=== PATIENT | male | born 1985 | race Caucasian/White ===

== ENCOUNTER 2018-10-27 00:16 | Emergency (ER) | payer SELFPAY ==
[2018-10-27 01:18] LABS: Protime INR 1.06
[2018-10-27 01:21] LABS: Absolute Lymphocytes (CBC) 3.7 K/uL (0.7-4.9); Basophils % 0.4 % (0-1.3); Hematocrit 45.8 % (39.6-49.0); Lymphocytes % 44.2 % (15.3-44.8); MPV 9.8 fL (7.6-11.3); RBC Red Blood Cell Count 5.34 M/uL (4.33-5.43)
[2018-10-27 01:32] LABS: ALT/SGPT 35 U/L (12-78); AST/SGOT 19 U/L (15-37); Albumin 4.1 g/dL (3.4-5.0); Alkaline Phosphatase 89 U/L (45-117); BUN Blood Urea Nitrogen 14 mg/dL (7-18); Bicarbonate 26 mmol/L (21-32); Bilirubin Direct < 0.1 mg/dL (0-0.2); Bilirubin Total 0.2 mg/dL (0.2-1.0); Glucose Level 132 mg/dL (74-106); Magnesium 2.4 mg/dL (1.8-2.4); Potassium 3.8 mmol/L (3.5-5.1); Protein, Total 7.7 g/dL (6.4-8.2); Sodium Level 140 mmol/L (136-145); Troponin (Emerg Dept Use Only) < 0.02 ng/mL (0.0-0.045)
[2018-10-27 01:33] LABS: NT PRO-BNP < 5 pg/mL (<125)
[2018-10-27 02:19] LABS: Urine Blood NEGATIVE (NEG); Urine Glucose NEGATIVE (NEG); Urine Specific Gravity 1.025 (1.005-1.030); Urine pH 6.5 (5.0-7.0)
[2018-10-27 02:20] LABS: Urine Protein NEGATIVE (NEG)
--- NOTE | 2018-10-27 02:34 | ER ---
Nurse's Notes [facility] Name: Hamlet Kumar Age: 32 yrs Sex: Male : 1985 Arrival Date: 10/27/2018 Time: 00:19 Bed 3 Private MD: Diagnosis: Syncope and collapse Presentation: 10/27 00:15 Presenting complaint: EMS states: that pt was standing outside smoking and had a fc witnessed seizure (tonic colonic) by that lasted a few seconds. Pt was also diaphoretic upon their arrival. Transition of care: patient was not received from another setting of care. Onset of symptoms was October 27, 2018. Risk Assessment: Do you want to hurt yourself or someone else? Patient reports no desire to harm self or others. Initial Sepsis Screen: Does the patient meet any 2 criteria? No. Patient's initial sepsis screen is negative. Does the patient have a suspected source of infection? No. Patient's initial sepsis screen is negative. Care prior to arrival: IV initiated. 18 GA, in the left antecubital area, Glucose check: 106. 00:15 Method Of Arrival: EMS: [facility] 00:15 Acuity: JAMIR 3 fc Historical: - Allergies: 00:23 No Known Allergies; fc - Home Meds: 00:23 None [Active]; fc - PMHx: 00:23 None; fc - PSHx: 00:23 None; fc - Immunization history:: Last tetanus immunization: up to date. - Social history:: Smoking status: Patient uses tobacco products, smokes one-half pack cigarettes per day. - Ebola Screening: : Patient negative for fever greater than or equal to 101.5 degrees Fahrenheit, and additional compatible Ebola Virus Disease symptoms Patient denies exposure to infectious person Patient denies travel to an Ebola-affected area in the 21 days before illness onset. Screenin:15 Abuse screen: Denies threats or abuse. Nutritional screening: No deficits noted. fc Tuberculosis screening: No symptoms or risk factors identified. Fall Risk None identified. Assessment: 00:30 General: Appears in no apparent distress. Behavior is calm, cooperative. General: bb Reports pt states he thinks he passed out for a few seconds. Pain: Denies pain. Neuro: Level of Consciousness is awake, alert, obeys commands, Oriented to person, place, time, situation. Cardiovascular: Heart tones S1 S2 present Capillary refill < 3 seconds Patient's skin is warm and dry. Pulses are all present. Edema is absent. Respiratory: Respiratory effort is even, unlabored, Respiratory pattern is regular, Breath sounds are clear bilaterally. GI: Abdomen is non-distended, Bowel sounds present X 4 quads. Abd is soft and non tender X 4 quads. Derm: Skin is pink, warm \T\ dry. Musculoskeletal: Circulation, motion, and sensation intact. 01:30 Reassessment: Patient is alert, oriented x 3, equal unlabored respirations, skin bb warm/dry/pink. pt returned from CT scan. 02:15 Reassessment: Patient and/or family updated on plan of care and expected duration. Pain bb level reassessed. Patient is alert, oriented x 3, equal unlabored respirations, skin warm/dry/pink. pt provided urine sample. IV site intact, no erythema or edema noted, awaiting results, family at bedside. 02:40 Reassessment: Patient and/or family updated on plan of care and expected duration. Pain bb level reassessed. Patient is alert, oriented x 3, equal unlabored respirations, skin warm/dry/pink. pt states he is ready to go home he feels fine EDP notified. Pt verbalized understanding of and agrees to plan of care discharge instructions given pt ambulated with steady gait to exit accompanied by spouse. Vital Signs: 00:15 BP 136 / 100; Pulse 67; Resp 18; Temp 97.2(O); Pulse Ox 96% on R/A; Weight 81.65 kg fc (R); Height 5 ft. 7 in. (170.18 cm) (R); Pain 0/10; 01:31 BP 127 / 71; Pulse 62; Resp 16 S; Pulse Ox 96% on R/A; bb 02:41 BP 109 / 95; Pulse 77; Resp 16 S; Pulse Ox 98% on R/A; Pain 0/10; bb 00:15 Body Mass Index 28.19 (81.65 kg, 170.18 cm) ED Course: 00:15 Arm band placed on Patient placed in a hallway bed, on a stretcher. 00:15 Patient has correct armband on for positive identification. Placed in gown. Bed in low fc position. Call light in reach. Side rails up X2. shelter monitor on. Pulse ox on. NIBP on. 00:19 Patient arrived in ED. ds1 00:22 Triage completed. fc 00:24 EKG completed in triage. Results shown to . jd3 00:28 Brennan Joseph NP is PHCP. pm1 00:28 Al Hernandez MD is Attending Physician. pm1 00:30 Initial lab(s) drawn, by me, sent to lab. bb 00:34 Maintain EMS IV. Dressing intact. Good blood return noted. Site clean \T\ dry. Gauge \T\ moy 3 site: 18 G to the left AC.. 00:45 X-ray completed. Portable x-ray completed in exam room. Patient tolerated procedure kw well. 01:26 XRAY Chest (1 view) In Process Unspecified. EDMS 01:35 CT completed. Patient tolerated procedure well. Patient moved to CT via stretcher. Patient moved back from CT. 01:47 CT Head Brain wo Cont In Process Unspecified. EDMS 02:14 Lexy Sorto, RN is Primary Nurse. bb 02:14 Urine collected: clean catch specimen, clear. bb 02:42 No provider procedures requiring assistance completed. IV discontinued, intact, bb bleeding controlled, No redness/swelling at site. Pressure dressing applied. Administered Medications: No medications were administered Outcome: 02:32 Discharge ordered by MD. pm1 02:42 Discharged to home ambulatory, with family. bb 02:42 Condition: stable 02:42 Discharge instructions given to patient, Instructed on discharge instructions, follow up and referral plans. Demonstrated understanding of instructions, follow-up care. 02:42 Patient left the ED. bb Signatures: Dispatcher [employer] EDNY Percy Reina Ariadne Evans, Pastora Murray RN ds1 Lexy Sorto, SHERI RN Judy Underwood Patrick, [employer]ER pm1 Joshua Monk RN RN jd3
--- NOTE | 2018-10-27 02:34 | EDPHYS ---
Physician Documentation [facility] Name: Hamlet Kumar Age: 32 yrs Sex: Male : 1985 Arrival Date: 10/27/2018 Time: 00:19 Bed 3 Private MD: ED Physician Al Hernandez HPI: 10/27 00:41 This 32 yrs old Male presents to ER via EMS with complaints of Probable pm1 Seizure. 00:41 The patient presents after having a single isolated seizure, that lasted 3 second(s), pm1 the episode(s) was witnessed, by family, . Character of seizure(s): Motor activity: generalized, Incontinence: none, Apnea: the patient did not experience apnea, Circulation: the patient did not experience evidence of pulse disturbance. Seizure onset: just prior to arrival. Context: the seizure(s) was witnessed, by family, , occurred at home, occurred while the patient was sitting. Seizure Hx: the patient has no previous seizure history. Associated injury: The patient did not suffer any apparent associated injury. Current symptoms: Currently, the patient is not experiencing any symptoms, the patient feels back to baseline. The patient has not experienced similar symptoms in the past. The patient has not recently seen a physician. Patient went outside to smoke with his and after a few puffs of her cigarette he felt faint and told his that he was going to pass out. He sat down and then he woke up shaking all over. No postictal period. Patient presents to ER at his normal baseline without any complaints. Historical: - Allergies: 00:23 No Known Allergies; fc - Home Meds: 00:23 None [Active]; fc - PMHx: 00:23 None; fc - PSHx: 00:23 None; fc - Immunization history:: Last tetanus immunization: up to date. - Social history:: Smoking status: Patient uses tobacco products, smokes one-half pack cigarettes per day. - Ebola Screening: : Patient negative for fever greater than or equal to 101.5 degrees Fahrenheit, and additional compatible Ebola Virus Disease symptoms Patient denies exposure to infectious person Patient denies travel to an Ebola-affected area in the 21 days before illness onset. ROS: 00:41 Constitutional: Negative for fever, chills, and weight loss, Eyes: Negative for injury, pm1 pain, redness, and discharge, ENT: Negative for injury, pain, and discharge, Neck: Negative for injury, pain, and swelling, Cardiovascular: Negative for chest pain, palpitations, and edema, Respiratory: Negative for shortness of breath, cough, wheezing, and pleuritic chest pain, Abdomen/GI: Negative for abdominal pain, nausea, vomiting, diarrhea, and constipation, Back: Negative for injury and pain, : Negative for injury, bleeding, discharge, and swelling, MS/Extremity: Negative for injury and deformity, Skin: Negative for injury, rash, and discoloration, Neuro: Negative for headache, weakness, numbness, tingling, and seizure. Exam: 00:41 Constitutional: This is a well developed, well nourished patient who is awake, alert, pm1 and in no acute distress. Head/Face: Normocephalic, atraumatic. Eyes: Pupils equal round and reactive to light, extra-ocular motions intact. Lids and lashes normal. Conjunctiva and sclera are non-icteric and not injected. Cornea within normal limits. Periorbital areas with no swelling, redness, or edema. ENT: Nares patent. No nasal discharge, no septal abnormalities noted. Tympanic membranes are normal and external auditory canals are clear. Oropharynx with no redness, swelling, or masses, exudates, or evidence of obstruction, uvula midline. Mucous membranes moist. Neck: Trachea midline, no thyromegaly or masses palpated, and no cervical lymphadenopathy. Supple, full range of motion without nuchal rigidity, or vertebral point tenderness. No Meningismus. Chest/axilla: Normal chest wall appearance and motion. Nontender with no deformity. No lesions are appreciated. Cardiovascular: Regular rate and rhythm with a normal S1 and S2. No gallops, murmurs, or rubs. No pulse deficits. Respiratory: Lungs have equal breath sounds bilaterally, clear to auscultation and percussion. No rales, rhonchi or wheezes noted. No increased work of breathing, no retractions or nasal flaring. Abdomen/GI: Soft, non-tender, with normal bowel sounds. No distension or tympany. No guarding or rebound. No evidence of tenderness throughout. Back: No spinal tenderness. No costovertebral tenderness. Full range of motion. Skin: Warm, dry with normal turgor. Normal color with no rashes, no lesions, and no evidence of cellulitis. MS/ Extremity: Pulses equal, no cyanosis. Neurovascular intact. Full, normal range of motion. 00:41 Neuro: Orientation: is normal, Motor: is normal, moves all fours, Sensation: is normal, no obvious gross deficits. Vital Signs: 00:15 BP 136 / 100; Pulse 67; Resp 18; Temp 97.2(O); Pulse Ox 96% on R/A; Weight 81.65 kg fc (R); Height 5 ft. 7 in. (170.18 cm) (R); Pain 0/10; 01:31 BP 127 / 71; Pulse 62; Resp 16 S; Pulse Ox 96% on R/A; bb 02:41 BP 109 / 95; Pulse 77; Resp 16 S; Pulse Ox 98% on R/A; Pain 0/10; bb 00:15 Body Mass Index 28.19 (81.65 kg, 170.18 cm) fc MDM: 00:28 Patient medically screened. pm1 02:11 Data reviewed: vital signs. Data interpreted: Pulse oximetry: on room air is 96 %. pm1 Interpretation: normal. 02:32 Counseling: I had a detailed discussion with the patient and/or guardian regarding: the pm1 historical points, exam findings, and any diagnostic results supporting the discharge/admit diagnosis, lab results, radiology results, the need for outpatient follow up, to return to the emergency department if symptoms worsen or persist or if there are any questions or concerns that arise at home. 10/27 00:30 Order name: Basic Metabolic Panel; Complete Time: 01:40 pm10/27 00:30 Order name: CBC with Diff pm10/27 00:30 Order name: LFT's; Complete Time: 01:40 pm10/27 00:30 Order name: Magnesium; Complete Time: 01:40 pm10/27 00:30 Order name: NT PRO-BNP; Complete Time: 01:40 pm10/27 00:30 Order name: PT-INR pm10/27 00:30 Order name: Troponin (emerg Dept Use Only); Complete Time: 01:40 pm10/27 00:30 Order name: XRAY Chest (1 view) pm1 10/27 00:30 Order name: EKG; Complete Time: 00:35 pm10/27 00:30 Order name: UDS; Complete Time: 02:57 pm1 10/27 00:30 Order name: CT Head Brain wo Cont pm1 10/27 01:23 Order name: CBC with Automated Diff EDWI 10/27 01:25 Order name: Protime (+INR) EDWI 10/27 02:15 Order name: Urine Dipstick--Ancillary (enter results); Complete Time: 02:29 bb 10/27 00:30 Order name: Cardiac monitoring; Complete Time: 00:34 pm10/27 00:30 Order name: EKG - Nurse/Tech; Complete Time: 00:34 pm10/27 00:30 Order name: IV Saline Lock; Complete Time: 00:33 pm10/27 00:30 Order name: Labs collected and sent; Complete Time: 00:34 pm10/27 00:30 Order name: O2 Per Protocol; Complete Time: 00:33 pm10/27 00:30 Order name: O2 Sat Monitoring; Complete Time: 00:33 10/27 00:34 Order name: Urine Dipstick-Ancillary (obtain specimen); Complete Time: 02:15 jd3 Administered Medications: No medications were administered Disposition: 07:06 Co-signature as Attending Physician, Al Hernandez MD I agree with the assessment and [facility] plan of care. Disposition: 10/27/18 02:32 Discharged to Home. Impression: Syncope and collapse. - Condition is Stable. - Discharge Instructions: Syncope. - Medication Reconciliation Form, Thank You Letter, Antibiotic Education, Prescription Opioid Use form. - Follow up: Emergency Department; When: As needed; Reason: Worsening of condition. Follow up: Private Physician; When: 2 - 3 days; Reason: Recheck today's complaints, Continuance of care, Re-evaluation by your physician. - Problem is new. - Symptoms have improved. Signatures: Dispatcher [employer] Al Lawrence MD MD cha Chretien, Felicia, RN RN Lexy Polanco RN RN bb Brennan Joseph, BOTTOM BUFFER BOTTOM BUFFER pm1 Joshua Monk RN RN jd3 Corrections: (The following items were deleted from the chart) 02:42 02:32 10/27/2018 02:32 Discharged to Home. Impression: Syncope and collapse. Condition bb is Stable. Forms are Medication Reconciliation Form, Thank You Letter, Antibiotic Education, Prescription Opioid Use. Follow up: Emergency Department; When: As needed; Reason: Worsening of condition. Follow up: Private Physician; When: 2 - 3 days; Reason: Recheck today's complaints, Continuance of care, Re-evaluation by your physician. Problem is new. Symptoms have improved. pm1
[2018-10-27 02:41] LABS: Barbiturates NEGATIVE (NEGATIVE); Benzodiazepines NEGATIVE (NEGATIVE); Cocaine NEGATIVE (NEGATIVE); METHAMPHETAM NEGATIVE (NEGATIVE); Methadone NEGATIVE (NEGATIVE); Opiates NEGATIVE (NEGATIVE); Phencyclidine NEGATIVE (NEGATIVE); THC Cannibis NEGATIVE (NEGATIVE)
--- NOTE | 2018-10-27 06:41 | EKG ---
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
--- NOTE | 2018-10-27 08:37 | RAD REPORT ---
EXAM DESCRIPTION: Mariela Single View10/27/2018 12:49 am CLINICAL HISTORY: Seizure COMPARISON: none FINDINGS: The lungs appear clear of acute infiltrate. The heart is normal size IMPRESSION: No acute abnormalities displayed
--- NOTE | 2018-10-27 09:30 | RAD REPORT ---
EXAM DESCRIPTION: CT - Head Brain Wo Cont - 10/27/2018 5:55 am CLINICAL HISTORY: 32 years Male SYNCOPE TECHNIQUE: Contiguous axial CT images obtained through the brain without IV contrast. This CT exam was performed according to our departmental dose-optimization program, which includes on e or more of the following dose reduction techniques: automated exposure control, adjustment of the m A and/or kV according to patient size, and/or use of iterative reconstruction technique. COMPARISON: No prior exams provided for comparison. FINDINGS: There is minimal left posterior parietal scalp swelling without soft tissue gas, foreign b teresita, or acute skull fracture. No visualized intracranial hemorrhage, extraaxial collection, or acute transcortical infarction. The ventricles are normal in size and contour without mass effect or midl ine shift. The visualized paranasal sinuses, tympanomastoid cavities, and orbits are normal. IMPRESSION: Minimal left posterior parietal scalp swelling without skull fracture or acute intracran ial injury. Electronically signed by: Marley Delatorre MD 10/27/2018 1:55 AM CDT Due to temporary technical issues with the PACS/Fluency reporting system, reports are being signed by the in house radiologist as a courtesy to ensure prompt reporting. The interpreting radiologist is f ully responsible for the content of the report.
== END 2018-10-27 02:42 | disposition home or self-care (01) ==
LOC: ER 00:16
DX: R55 Syncope and collapse (principal); F17.210 Nicotine dependence, cigarettes, uncomplicated
CPT/HCPCS: 36415; 70450; 71045; 80048; 80076; 80307; 81003; 83735; 83880; 84484; 85025; 85610; 93005; 99285

== ENCOUNTER 2019-01-09 08:17 | Emergency (ER) | payer SELFPAY ==
[2019-01-09] MEDS ORDERED: NA CHLORIDE 0.9% 1,000 ML ONE (08:42)
[2019-01-09] MEDS ORDERED: ONDANSETRON 4 MG/2 ML VIAL ONE (08:42)
[2019-01-09] MEDS ORDERED: MORPHINE 4 MG/ML SYR ONE (08:46)
[2019-01-09] MEDS ORDERED: KETOROLAC 30 MG/ML INJ ONE (08:46)
[2019-01-09 09:07] LABS: Albumin 4.3 g/dL (3.4-5.0); Bilirubin Direct 0.2 mg/dL (0-0.2); Bilirubin Total 0.9 mg/dL (0.2-1.0); Potassium 3.7 mmol/L (3.5-5.1); Protein, Total 8.1 g/dL (6.4-8.2)
[2019-01-09 09:08] LABS: Absolute Lymphocytes (CBC) 2.2 K/uL (0.7-4.9); Basophils % 0.3 % (0-1.3); Hematocrit 46.3 % (39.6-49.0); Lymphocytes % 38.5 % (15.3-44.8); MPV 9.2 fL (7.6-11.3); RBC Red Blood Cell Count 5.36 M/uL (4.33-5.43)
--- NOTE | 2019-01-09 09:27 | RAD REPORT ---
EXAM DESCRIPTION: CT - Stone Protocol - 01/09/2019 9:06 am CLINICAL HISTORY: Flank pain. ABD PAIN COMPARISON: No comparisons TECHNIQUE: Axial images were obtained without oral or IV contrast. Lack of contrast limits solid org an and vascular assessment. The [id number] spans the entirety of the system partially obscuring uppermost abdomen and lung bases. Coronal reformatted images were obtained and reviewed. All CT scans are performed using dose optimization technique as appropriate and may include automated exposure control or mA/KV adjustment according to patient size. FINDINGS: The lower lung beard are clear. Imaged portions of the liver and spleen show no suspicious findings on non-contrast imaging. The panc reas and adrenal glands are normal. No pathologic lymphadenopathy in the abdomen or pelvis. 3 mm calculus is present at the left UVJ with minimal left hydronephrosis. Additional punctate calcul i are present superior calyx left kidney. No right-sided tract calculus identified. No bowel obstruction, free air, free fluid or abscess. Normal appendix noted. No significant bony abnormality. IMPRESSION: 3 mm stone is present at the left UVJ resulting in minimal left hydronephrosis.
[2019-01-09] MEDS ORDERED: TAMSULOSIN 0.4 MG SR CAP ONE (09:35)
[2019-01-09] MEDS ORDERED: CEFTRIAXONE/SWI 1gm 1 GM/10 ML SYR ONE (09:35)
--- NOTE | 2019-01-09 09:36 | EDPHYS ---
Physician Documentation [facility] Name: Hamlet Kumar Age: 33 yrs Sex: Male : 1985 Arrival Date: 01/09/2019 Time: 08:19 Bed 5 Private MD: Reed Valentin E ED Physician Al Hernandez HPI: 01/09 08:54 This 33 yrs old Male presents to ER via Ambulatory with complaints of merna Abdominal Pain. 08:54 The patient presents with abdominal pain in the upper abdomen, in the lower abdomen. merna 08:54 Onset: The symptoms/episode began/occurred just prior to arrival, this morning. The merna patient complains of pain in the left low back and left mid back. The pain radiates to the left low back and left mid back. Onset: The symptoms/episode began/occurred 2 day(s) ago. Modifying factors: The symptoms are alleviated by nothing. the symptoms are aggravated by nothing. The symptoms radiate to the left flank. Associated signs and symptoms: The patient has no apparent associated signs or symptoms. Associated signs and symptoms: none. Modifying factors: The symptoms are alleviated by nothing, the symptoms are aggravated by nothing. Historical: - Allergies: 08:31 No Known Allergies; ss - Home Meds: 08:31 None [Active]; ss - PMHx: 08:31 None; ss - PSHx: 08:31 None; ss - Immunization history:: Adult Immunizations up to date. - Social history:: Smoking status: Patient uses tobacco products, denies chronic smoking, but will smoke occasionally, chewing tobacco. - Ebola Screening: : Patient denies exposure to infectious person Patient denies travel to an Ebola-affected area in the 21 days before illness onset. - Family history:: not pertinent. ROS: 08:54 Constitutional: Negative for fever, chills, and weight loss, Eyes: Negative for injury, merna pain, redness, and discharge, ENT: Negative for injury, pain, and discharge, Neck: Negative for injury, pain, and swelling, Cardiovascular: Negative for chest pain, palpitations, and edema, Respiratory: Negative for shortness of breath, cough, wheezing, and pleuritic chest pain, Back: Negative for injury and pain, : Negative for injury, bleeding, discharge, and swelling, MS/Extremity: Negative for injury and deformity, Skin: Negative for injury, rash, and discoloration, Neuro: Negative for headache, weakness, numbness, tingling, and seizure, Psych: Negative for depression, anxiety, suicide ideation, homicidal ideation, and hallucinations, Allergy/Immunology: Negative for hives, rash, and allergies, Endocrine: Negative for neck swelling, polydipsia, polyuria, polyphagia, and marked weight changes, Hematologic/Lymphatic: Negative for swollen nodes, abnormal bleeding, and unusual bruising. 08:54 Abdomen/GI: Positive for abdominal pain, of the anterior aspect of left lateral abdomen, posterior aspect of left lateral abdomen, left upper quadrant and left lower quadrant. Exam: 08:54 Constitutional: This is a well developed, well nourished patient who is awake, alert, merna and in no acute distress. Head/Face: Normocephalic, atraumatic. Eyes: Pupils equal round and reactive to light, extra-ocular motions intact. Lids and lashes normal. Conjunctiva and sclera are non-icteric and not injected. Cornea within normal limits. Periorbital areas with no swelling, redness, or edema. ENT: Nares patent. No nasal discharge, no septal abnormalities noted. Tympanic membranes are normal and external auditory canals are clear. Oropharynx with no redness, swelling, or masses, exudates, or evidence of obstruction, uvula midline. Mucous membranes moist. Neck: Trachea midline, no thyromegaly or masses palpated, and no cervical lymphadenopathy. Supple, full range of motion without nuchal rigidity, or vertebral point tenderness. No Meningismus. Chest/axilla: Normal chest wall appearance and motion. Nontender with no deformity. No lesions are appreciated. Cardiovascular: Regular rate and rhythm with a normal S1 and S2. No gallops, murmurs, or rubs. Normal PMI, no JVD. No pulse deficits. Respiratory: Lungs have equal breath sounds bilaterally, clear to auscultation and percussion. No rales, rhonchi or wheezes noted. No increased work of breathing, no retractions or nasal flaring. Abdomen/GI: Soft, non-tender, with normal bowel sounds. No distension or tympany. No guarding or rebound. No evidence of tenderness throughout. Male : Normal genitalia with no discharge or lesions. Skin: Warm, dry with normal turgor. Normal color with no rashes, no lesions, and no evidence of cellulitis. MS/ Extremity: Pulses equal, no cyanosis. Neurovascular intact. Full, normal range of motion. Neuro: Awake and alert, GCS 15, oriented to person, place, time, and situation. Cranial nerves II-XII grossly intact. Motor strength 5/5 in all extremities. Sensory grossly intact. Cerebellar exam normal. Normal gait. Psych: Awake, alert, with orientation to person, place and time. Behavior, mood, and affect are within normal limits. 08:54 Back: pain, that is mild, ROM is painful, normal spinal alignment noted, CVA tenderness, that is mild, is noted on the left. Vital Signs: 08:29 BP 150 / 104; Pulse 75; Resp 16; Temp 97.8(TE); Pulse Ox 98% on R/A; Weight 83.91 kg; ss Height 5 ft. 8 in. (172.72 cm); Pain 9/10; 08:32 BP 146 / 95; sv 08:58 BP 132 / 95; Pulse 62; Resp 16; Pulse Ox 98% on R/A; sv 09:41 BP 121 / 55; Pulse 65; Resp 16; Pulse Ox 99% ; sv 08:29 Body Mass Index 28.13 (83.91 kg, 172.72 cm) ss MDM: 08:31 Patient medically screened. [facility] 08:58 Data reviewed: vital signs, nurses notes, lab test result(s), radiologic studies, CT merna scan, plain films. 01/09 08:32 Order name: Basic Metabolic Panel; Complete Time: 09:33 sv 01/09 08:32 Order name: CBC with Diff; Complete Time: 09:33 sv 01/09 08:32 Order name: Creatinine for Radiology; Complete Time: 09:33 sv 01/09 08:32 Order name: Hepatic Function; Complete Time: 09:33 sv 01/09 08:32 Order name: Lipase; Complete Time: 09:33 sv 01/09 08:53 Order name: CT Stone Protocol; Complete Time: 09:33 merna 01/09 08:32 Order name: IV Saline Lock; Complete Time: 08:54 sv 01/09 08:32 Order name: Labs collected and sent; Complete Time: 08:54 sv Administered Medications: 08:48 Drug: NS 0.9% 1000 ml Route: IV; Rate: 1 bolus; Site: right antecubital; sv 09:42 Follow up: Response: No adverse reaction; IV Status: Completed infusion; IV Intake: sv 1000ml 08:48 Drug: Zofran 4 mg Route: IVP; Site: right antecubital; sv 09:41 Follow up: Response: No adverse reaction sv 08:50 Drug: TORadol 30 mg Route: IVP; Site: right antecubital; sv 09:42 Follow up: Response: No adverse reaction sv 08:52 Drug: morphine 4 mg {Note: RASS1.} Route: IVP; Site: right antecubital; sv 09:42 Follow up: Response: No adverse reaction; RASS: Alert and Calm (0) sv 09:40 Drug: Rocephin 1 grams Route: IV; Rate: per protocol; Site: right antecubital; jl7 09:42 Follow up: Response: No adverse reaction; IV Status: Completed infusion jl7 09:40 Drug: Flomax 0.4 mg Route: PO; jl7 09:43 Follow up: Response: No adverse reaction [facility] Disposition: 01/09/19 09:35 Discharged to Home. Impression: Hydronephrosis with renal and ureteral calculous obstruction - 3mm uvj . - Condition is Stable. - Discharge Instructions: Kidney Stones, Kidney Stones, [id number], Hydronephrosis, Dietary Guidelines to Help Prevent Kidney Stones. - Prescriptions for Tylenol- Codeine #3 300-30 mg Oral Tablet - take 2 tablet by ORAL route every 6 hours As needed; 30 tablet. Zofran 4 mg Oral Tablet - take 1 tablet by ORAL route every 12 hours As needed; 20 tablet. Flomax 0.4 mg Oral Capsule, Sust. Release 24 hr - take 1 capsule by ORAL route once daily 1/2 hour following the same meal each day; 30 capsule. Cipro 500 mg Oral Tablet - take 1 tablet by ORAL route every 12 hours for 7 days; 14 tablet. - Medication Reconciliation Form, Thank You Letter, Antibiotic Education, Prescription Opioid Use, Work release form form. - Follow up: Reed Valentin MD; When: 2 - 3 days; Reason: Recheck today's complaints, Continuance of care, Re-evaluation by your physician. Follow up: Lynette Barrett MD; When: 2 - 3 days; Reason: Recheck today's complaints, Continuance of care, Re-evaluation by your physician. - Problem is new. - Symptoms have improved. Signatures: Dispatcher [employer] EDMN Xi Renae, RN RN Al Avila MD MD cha Smirch, Shelby RN RN Edouard Ortiz RN RN jl7 Corrections: (The following items were deleted from the chart) 09:01 08:37 Urine Culture ordered. EDMN EDMN 09:54 09:35 01/09/2019 09:35 Discharged to Home. Impression: Hydronephrosis with renal and sv ureteral calculous obstruction - 3mm uvj . Condition is Stable. Forms are Medication Reconciliation Form, Thank You Letter, Antibiotic Education, Prescription Opioid Use. Follow up: Reed Valentin; When: 2 - 3 days; Reason: Recheck today's complaints, Continuance of care, Re-evaluation by your physician. Follow up: Lynette Barrett; When: 2 - 3 days; Reason: Recheck today's complaints, Continuance of care, Re-evaluation by your physician. Problem is new. Symptoms have improved. merna
--- NOTE | 2019-01-09 09:36 | ER ---
Nurse's Notes [facility] Name: Hamlet Kumar Age: 33 yrs Sex: Male : 1985 Arrival Date: 01/09/2019 Time: 08:19 Bed 5 Private MD: Reed Valentin E Diagnosis: Hydronephrosis with renal and ureteral calculous obstruction-3mm uvj Presentation: 01/09 08:30 Presenting complaint: Patient states: sharp, cramping, continuous L sided abd pain that ss began this morning with N/V. Transition of care: patient was not received from another setting of care. Onset of symptoms was January 09, 2019. Risk Assessment: Do you want to hurt yourself or someone else? Patient reports no desire to harm self or others. Initial Sepsis Screen: Does the patient meet any 2 criteria? No. Patient's initial sepsis screen is negative. Does the patient have a suspected source of infection? No. Patient's initial sepsis screen is negative. Care prior to arrival: None. 08:30 Method Of Arrival: Ambulatory ss 08:30 Acuity: JAMIR 3 ss Historical: - Allergies: 08:31 No Known Allergies; ss - Home Meds: 08:31 None [Active]; ss - PMHx: 08:31 None; ss - PSHx: 08:31 None; ss - Immunization history:: Adult Immunizations up to date. - Social history:: Smoking status: Patient uses tobacco products, denies chronic smoking, but will smoke occasionally, chewing tobacco. - Ebola Screening: : Patient denies exposure to infectious person Patient denies travel to an Ebola-affected area in the 21 days before illness onset. - Family history:: not pertinent. Screenin:32 Abuse screen: Denies threats or abuse. Denies injuries from another. Nutritional sv screening: No deficits noted. Tuberculosis screening: No symptoms or risk factors identified. Fall Risk None identified. Assessment: 08:35 General: Appears in no apparent distress. uncomfortable, well groomed, well developed, sv Behavior is cooperative, appropriate for age, restless. Pain: Complains of pain in left upper quadrant Pain currently is 9 out of 10 on a pain scale. Quality of pain is described as sharp, Pain began this morning Is continuous, Aggravated by Pepto bismol. Neuro: Level of Consciousness is awake, alert, obeys commands, Oriented to person, place, time, situation, Gait is steady. Respiratory: Airway is patent Respiratory effort is even, unlabored, Respiratory pattern is regular, symmetrical. GI: Abdomen is flat, non-distended, Abd is soft X 4 quads Abdomen is tender to palpation in left upper quadrant Reports nausea, vomiting. Derm: Skin temperature is warm. Vital Signs: 08:29 BP 150 / 104; Pulse 75; Resp 16; Temp 97.8(TE); Pulse Ox 98% on R/A; Weight 83.91 kg; ss Height 5 ft. 8 in. (172.72 cm); Pain 9/10; 08:32 BP 146 / 95; sv 08:58 BP 132 / 95; Pulse 62; Resp 16; Pulse Ox 98% on R/A; sv 09:41 BP 121 / 55; Pulse 65; Resp 16; Pulse Ox 99% ; sv 08:29 Body Mass Index 28.13 (83.91 kg, 172.72 cm) ED Course: 08:19 Patient arrived in ED. mr 08:19 Hina Flood MD is Private Physician. mr 08:19 Reed Valentin MD is Private Physician. mr 08:29 Arm band placed on right wrist. ss 08:30 Al Hernandez MD is Attending Physician. merna 08:31 Triage completed. ss 08:31 Xi Renae, SHERI is Primary Nurse. sv 08:32 Patient has correct armband on for positive identification. Bed in low position. Call sv light in reach. Pulse ox on. NIBP on. Door closed. Head of bed elevated. 08:40 Inserted saline lock: 20 gauge in right antecubital area, using aseptic technique. sv Blood collected. Flushed right antecubital with 5 ml normal saline. 09:[address] via wheelchair. sv 09:06 CT Stone Protocol In Process Unspecified. EDMS 09:[address]. sv 09:34 Reed Valentin MD is Referral Physician. merna 09:34 Lynette Barrett MD is Referral Physician. merna 09:53 No provider procedures requiring assistance completed. IV discontinued, intact, sv bleeding controlled, No redness/swelling at site. Pressure dressing applied. Administered Medications: 08:48 Drug: NS 0.9% 1000 ml Route: IV; Rate: 1 bolus; Site: right antecubital; sv 09:42 Follow up: Response: No adverse reaction; IV Status: Completed infusion; IV Intake: sv 1000ml 08:48 Drug: Zofran 4 mg Route: IVP; Site: right antecubital; sv 09:41 Follow up: Response: No adverse reaction sv 08:50 Drug: TORadol 30 mg Route: IVP; Site: right antecubital; sv 09:42 Follow up: Response: No adverse reaction sv 08:52 Drug: morphine 4 mg {Note: RASS1.} Route: IVP; Site: right antecubital; sv 09:42 Follow up: Response: No adverse reaction; RASS: Alert and Calm (0) sv 09:40 Drug: Rocephin 1 grams Route: IV; Rate: per protocol; Site: right antecubital; jl7 09:42 Follow up: Response: No adverse reaction; IV Status: Completed infusion jl7 09:40 Drug: Flomax 0.4 mg Route: PO; jl7 09:43 Follow up: Response: No adverse reaction jl7 Intake: 09:42 IV: 1000ml; Total: 1000ml. sv Outcome: 09:35 Discharge ordered by . merna 09:53 Discharged to home ambulatory, with family. sv 09:53 Condition: stable 09:53 Discharge instructions given to patient, family, Instructed on discharge instructions, follow up and referral plans. no drinking with medication, no driving heavy equipment, medication usage, Demonstrated understanding of instructions, follow-up care, medications, Prescriptions given X 4. 09:54 Patient left the ED. sv Signatures: Dispatcher [employer] EDXi Wesley, Al Lama RN, MD MD cha Rivera, Mary mr Smirch, Shelby, RN RN ss Leal, Jahala, RN RN jl7
[2019-01-09 09:58] VITALS: TEMP 97.8
[2019-01-09 10:02] VITALS: BP 121/55; O2SAT 99
== END 2019-01-09 09:54 | disposition home or self-care (01) ==
LOC: ER 08:17
DX: N13.2 Hydronephrosis with renal and ureteral calculous obstruction (principal); F17.220 Nicotine dependence, chewing tobacco, uncomplicated
CPT/HCPCS: 36415; 74176; 76377; 80048; 80076; 83690; 85025; 96361; 96374; 96375; 99284; J0696; J2405; J7030